=== PATIENT | male | born 1955 | race Caucasian/White ===

== ENCOUNTER 2019-03-06 06:49 | Day surgery (SDC) | payer OTHER, BC ==
[~2019-03-06 06:49] MED LIST: CEFAZOLIN 2 GM/50 ML (PMX) 50 ML IVPB
[2019-03-06] MEDS: SOD CHLORIDE 0.9% 1,000 ML IV (07:57)
[2019-03-06] MEDS ORDERED: LIDOCAINE 2% (MDV) 20 ML INJ (10:09)
[2019-03-06] MEDS ORDERED: BUPIVACAINE 0.5% (SDV) 30 ML INJ (10:09)
[2019-03-06] MEDS ORDERED: LORAZEPAM 2 MG INJ IV (10:30)
[2019-03-06] MEDS ORDERED: DIPHENHYDRAMINE 50 MG INJ IV (10:30)
[2019-03-06] MEDS ORDERED: LABETALOL HCL 20MG INJ IV (10:30)
[2019-03-06] MEDS ORDERED: hydrALAzine 20 MG INJ IV (10:30)
[2019-03-06] MEDS ORDERED: ONDANSETRON 4 MG INJ IV (10:30)
[2019-03-06] MEDS ORDERED: PROCHLORPERAZINE 10 MG INJ IV (10:30)
[2019-03-06] MEDS ORDERED: MIDAZOLAM 1 MG/ML 2 ML INJ IV (10:30)
[2019-03-06] MEDS ORDERED: ROCURONIUM 50 MG INJ (10:31)
[2019-03-06] MEDS ORDERED: FENTAnyl 50 MCG/ML VIAL (10:31)
[2019-03-06] MEDS ORDERED: PROPOFOL 20 ML (10:31)
[2019-03-06] MEDS ORDERED: MIDAZOLAM 1 MG/ML 2 ML INJ (10:31)
[2019-03-06] MEDS ORDERED: LIDOCAINE 1% (MDV) 20 ML INJ (10:32)
[2019-03-06] MEDS ORDERED: CEFAZOLIN 1 GM INJ (10:41)
[2019-03-06] MEDS ORDERED: LABETALOL HCL 20MG INJ (10:43)
[2019-03-06] MEDS ORDERED: KETOROLAC 30 MG INJ (10:46)
[2019-03-06] MEDS: BUPIVACAINE 0.25% (MPF) 30 ML INJ (10:57)
[2019-03-06] MEDS ORDERED: IBUPROFEN 800 MG TAB PO (11:30)
== END 2019-03-06 12:53 | disposition home or self-care (01) ==
LOC: SDS 06:49
DX: L72.0 Epidermal cyst (principal); I10 Essential (primary) hypertension; E11.9 Type 2 diabetes mellitus without complications; F17.200 Nicotine dependence, unspecified, uncomplicated
CPT/HCPCS: 14001; 88307